=== PATIENT | male | born 1980 | race Caucasian/White ===

== ENCOUNTER 2017-02-08 21:05 | Emergency (ER) | payer OTHER ==
[~2017-02-08] VITALS: Ht 177.8 cm; Wt 104.8 kg
[~2017-02-08 21:05] MED LIST: AUGM875T PO; OMEP10CA37 PO
[2017-02-08 21:25] VITALS: BP 157/90; PULSE 84; RESP 22; TEMP 98.3; O2SAT 95
[2017-02-08] MEDS ORDERED: B/P MED PO (21:32)
[2017-02-08] MEDS ORDERED: AMBI10TA PO (21:32)
[2017-02-08] MEDS ORDERED: PRIL20TA2 PO (21:32)
[2017-02-08] MEDS ORDERED: CEPH-460 PO (21:58)
--- NOTE | 2017-02-08 21:58 | PD ---
HPI Chief Complaint: Foreign Body Time Seen by Provider: 21:33 Travel History International Travel<30 days: No Contact w/Intl Traveler<30days: No Traveled to known affect area: No History of Present Illness HPI 36-year-old male complains of a foreign body underneath the right third finger fingernail. Patient states that he accidentally got a piece of metal underneath of the fingernail. Patient states that he is not up-to-date with TD booster. PFSH Past Medical History Cardiovascular Problems: Yes (HTN) Diabetes: No Diminished Hearing: No GERD: Yes Hypertension: Yes Immunizations Current: Yes Tetanus Vaccination: > 5 Years Influenza Vaccination: Yes Past Surgical History Other Surgery: Yes (removal of a cystic hygroma.) Social History Alcohol Use: Yes (4 DRINKS PER WEEK) Tobacco Use: Yes (1PPD) Substance Use: No Allergies-Medications (Allergen,Severity, Reaction): Coded Allergies: No Known Allergies (Verified Adverse Reaction, Unknown, 02/08/17) Reported Meds & Prescriptions Reported Meds & Active Scripts Active Reported [B/P Med] 1 Tab PO DAILY Ambien (Zolpidem Tartrate) 10 Mg Tab 10 Mg PO HS PRN Prilosec (Omeprazole Magnesium) 20 Mg Tab 1 Tab PO DAILY Physical Exam Narrative GENERAL: Well-nourished, well-developed patient. SKIN: Focused skin assessment warm/dry. HEAD: Normocephalic. EYES: No scleral icterus. No injection or drainage. NECK: Supple, trachea midline. No JVD or lymphadenopathy. CARDIOVASCULAR: Regular rate and rhythm without murmurs, gallops, or rubs. RESPIRATORY: Breath sounds equal bilaterally. No accessory muscle use. GASTROINTESTINAL: Abdomen soft, non-tender, nondistended. MUSCULOSKELETAL: No cyanosis, or edema. BACK: Nontender without obvious deformity. No CVA tenderness. Patient has a small piece of black foreign body underneath of the right third finger fingernail. Data Data Last Documented VS Vital Signs Date Time Temp Pulse Resp B/P (MAP) Pulse Ox O2 Delivery O2 Flow Rate FiO2 02/08/17 21:32 (112) 02/08/17 21:25 98.3 84 22 95 Orders Orders Tetanus/Diphtheria Tox Adult (Tetanus/Di (02/08/17 22:00) Cephalexin (Keflex) (02/08/17 22:00) [facility] Medical Decision Making Medical Screen Exam Complete: Yes Emergency Medical Condition: Yes Differential Diagnosis Differential diagnosis including foreign body underneath the third finger fingernail. Narrative Course 36-year-old male with foreign body underneath the right third finger fingernail. The foreign body was removed after partial removal of the fingernail with scissor and forcep removal of the foreign body. TD booster given. Procedures Procedure Narrative Partial removal of the tip of the fingernail. The foreign body was removed with a forceps. Polysporin ointment and Band-Aid. Diagnosis Primary Impression: Foreign body of finger of right hand Qualified Codes: S60.459A - Superficial foreign body of unspecified finger, initial encounter Patient Instructions: General Instructions Med/Other Pt SpecificInfo: Prescription(s) given Scripts Cephalexin (Keflex) 500 Mg Capsule 500 MG PO TID for Infection, #15 CAP 0 Refills Prov: Lanre Wu MD 02/08/17 Disposition: 01 DISCHARGE HOME Condition: Stable Lanre Wu MD Feb 08, 2017 21:58
[2017-02-08] MEDS ORDERED: TETANUS/DIPHTHERIA TOXOID ADULT 0.5 ML VIAL IM ONE (22:00)
[2017-02-08] MEDS ORDERED: CEPHALEXIN MONOHYDRATE 500 MG CAP PO ONE (22:00)
== END 2017-02-08 22:05 | disposition home or self-care (01) ==
LOC: PHEFT 21:05
DX: S60.459A Superficial foreign body of unspecified finger, initial encounter (principal); I10 Essential (primary) hypertension; W45.8XXA Other foreign body or object entering through skin, initial encounter; Z23 Encounter for immunization; Z72.0 Tobacco use
CPT/HCPCS: 10121; 90471; 90714; 96372

== ENCOUNTER 2017-04-13 14:28 | Emergency (ER) | payer OTHER ==
[~2017-04-13] VITALS: Ht 177.8 cm; Wt 104.0 kg
[~2017-04-13 14:28] MED LIST changes: +AMBI10TA PO; -AUGM875T PO; +B/P MED PO; +CEPH-460 PO; -OMEP10CA37 PO; +PRIL20TA2 PO
[2017-04-13 14:35] VITALS: BP 154/94; PULSE 82; RESP 16; TEMP 98.5; O2SAT 96
--- NOTE | 2017-04-13 15:55 | PD ---
Physical Exam Date Seen by Provider: Apr 13, 2017 Time Seen by Provider: 15:54 Narrative I was asked by Dr. Wu to incise and drain abscess to patient's left groin. Please see his documentation for full history and physical. Data Data Last Documented VS Vital Signs Date Time Temp Pulse Resp B/P (MAP) Pulse Ox O2 Delivery O2 Flow Rate FiO2 04/13/17 14:35 98.5 82 16 154/94 (114) 96 MDM Supervised Visit with ENOCH: No Procedures Procedure Narrative INCISION AND DRAINAGE OF ABSCESS: The area was prepped and was sterilely draped. A subcutaneous wheal of 2% Xylocaine with epinephrine with a total number 5 mL was used to anesthetize the area. The area was properly anesthetized. A number 11 scalpel was used to make a 1 -cm incision across the area of the abscess. Cultures were obtained. The abscess was drained an irrigated with normal saline. Quarter inch iodoform packing was placed in the wound. Sterile dressing applied. Patient advised to have packing removed in two days. Patricia Campbell Apr 13, 2017 15:55
[2017-04-13] MEDS ORDERED: TRAM50 PO (16:00)
[2017-04-13] MEDS ORDERED: CLIN150C14 PO (16:00)
[2017-04-13] MEDS ORDERED: BACT800T5 PO (16:00)
--- NOTE | 2017-04-13 16:01 | PD ---
HPI Chief Complaint: Skin Problem Time Seen by Provider: 15:34 Travel History International Travel<30 days: No Contact w/Intl Traveler<30days: No Traveled to known affect area: No History of Present Illness HPI 36-year-old male complains of pain swelling on the left groin area. Patient states that the symptoms started about 6 days ago. Patient has history of abscess in the left groin about 2 and a half months ago. Patient had I&D at that time. Patient states that he has recurrent of the symptoms problem for the past 6 days. Patient denies any fever chills. Patient states that he is up -to-date with TD booster. PFSH Past Medical History Cardiovascular Problems: Yes (HTN) Diabetes: No Diminished Hearing: No GERD: Yes Hypertension: Yes Immunizations Current: Yes Past Surgical History Other Surgery: Yes (removal of a cystic hygroma.) Social History Alcohol Use: Yes (4 DRINKS PER WEEK) Tobacco Use: Yes (1PPD) Substance Use: No Allergies-Medications (Allergen,Severity, Reaction): Coded Allergies: No Known Allergies (Verified Adverse Reaction, Unknown, 04/13/17) Reported Meds & Prescriptions Reported Meds & Active Scripts Active Reported [B/P Med] 1 Tab PO DAILY Ambien (Zolpidem Tartrate) 10 Mg Tab 10 Mg PO HS PRN Prilosec (Omeprazole Magnesium) 20 Mg Tab 1 Tab PO DAILY Review of Systems General / Constitutional: No: Fever Eyes: No: Visual changes HENT: No: Headaches Cardiovascular: No: Chest Pain or Discomfort Respiratory: No: Shortness of Breath Gastrointestinal: No: Abdominal Pain Genitourinary: No: Dysuria Musculoskeletal: No: Pain Skin: No Rash Neurologic: No: Weakness Psychiatric: No: Depression Endocrine: No: Polydipsia Hematologic/Lymphatic: No: Easy Bruising Physical Exam Narrative GENERAL: Well-nourished, well-developed patient. SKIN: Focused skin assessment warm/dry. HEAD: Normocephalic. EYES: No scleral icterus. No injection or drainage. NECK: Supple, trachea midline. No JVD or lymphadenopathy. CARDIOVASCULAR: Regular rate and rhythm without murmurs, gallops, or rubs. RESPIRATORY: Breath sounds equal bilaterally. No accessory muscle use. GASTROINTESTINAL: Abdomen soft, non-tender, nondistended. MUSCULOSKELETAL: No cyanosis, or edema. BACK: Nontender without obvious deformity. No CVA tenderness. Patient has an area redness swelling tenderness induration left inguinal area. No discharge noted. Data Data Last Documented VS Vital Signs Date Time Temp Pulse Resp B/P (MAP) Pulse Ox O2 Delivery O2 Flow Rate FiO2 04/13/17 14:35 98.5 82 16 154/94 (114) 96 MDM Medical Decision Making Medical Screen Exam Complete: Yes Emergency Medical Condition: Yes Differential Diagnosis Differential diagnosis including abscess, infected cyst, cellulitis. Narrative Course 36-year-old male with redness swelling tenderness left inguinal area. History abscess in the past. Diagnosis Primary Impression: Abscess of left groin Patient Instructions: General Instructions Additional Instructions: Wound care daily. Take antibiotics as directed. Packing removal in 2 days. Follow-up with personal physician. Return if increasing redness swelling. Med/Other Pt SpecificInfo: Prescription(s) given Scripts Tramadol (Ultram) 50 Mg Tab 50 MG PO Q6H Y for PAIN, #12 TAB 0 Refills Prov: Lanre Wu MD 04/13/17 Clindamycin (Clindamycin) 150 Mg Cap 300 MG PO QID for Infection, #56 CAP 0 Refills Prov: Lanre Wu MD 04/13/17 Sulfamethoxazole-Trimethoprim (Bactrim DS) 800-160 Mg Tab 1 TAB PO BID for Infection, #20 TAB 0 Refills Prov: Lanre Wu MD 04/13/17 Disposition: 01 DISCHARGE HOME Condition: Stable Lanre Wu MD Apr 13, 2017 16:01
== END 2017-04-13 16:07 | disposition home or self-care (01) ==
LOC: PHED 14:28
DX: L02.214 Cutaneous abscess of groin (principal); B95.2 Enterococcus as the cause of diseases classified elsewhere; I10 Essential (primary) hypertension; Z72.0 Tobacco use
CPT/HCPCS: 10061; 87070; 87077; 87185; 87186; 87205